=== PATIENT | female | born 1970 | race Caucasian/White ===

== ENCOUNTER 2023-06-30 06:16 | Emergency (ER) | payer BC ==
[~2023-06-30] VITALS: Ht 165.1 cm; Wt 79.8 kg
[2023-06-30 06:21] VITALS: TEMP 98.9
[2023-06-30 07:13] VITALS: BP 147/100; PULSE 73; RESP 18; O2SAT 100
[2023-06-30] MEDS ORDERED: CIPR2.5D21 EACHEYE (07:35)
== END 2023-06-30 07:53 | disposition home or self-care (01) ==
LOC: ER 06:17
DX: H10.213 Acute toxic conjunctivitis, bilateral (principal); Z79.899 Other long term (current) drug therapy
CPT/HCPCS: 99283